=== PATIENT | male | born 1985 | race Caucasian/White ===

== ENCOUNTER 2018-01-02 09:36 | Emergency (ER) | payer SELFPAY ==
[~2018-01-02] VITALS: Ht 165.1 cm; Wt 69.6 kg
[2018-01-02 09:46] VITALS: TEMP 97.1
[2018-01-02 10:00] LABS: COLLECTION METHOD CLEAN CATCH
[2018-01-02 10:28] LABS: MUCOUS Present /lpf; PH 5 (5-8); SQUAMOUS EPITHELIAL 0-2 /hpf; URINE APPEARANCE Hazy; URINE BACTERIA None Seen /hpf; URINE BILIRUBIN Negative (NEGATIVE); URINE BLOOD Negative (NEGATIVE); URINE COLOR Yellow; URINE GLUCOSE Negative (NEGATIVE); URINE KETONE Negative (NEGATIVE); URINE LEUKOCYTE ESTERASE 2+ (NEGATIVE); URINE NITRATE Negative (NEGATIVE); URINE PROTEIN(semi-quant) Negative (NEGATIVE); URINE UROBILINOGEN Negative (NEGATIVE)
[2018-01-02 12:50] VITALS: BP 128/97; PULSE 55
== END 2018-01-02 12:51 | disposition home or self-care (01) ==
LOC: COL.ER 09:36
PROVIDERS: Nurse Practitioner
DX: A54.9 Gonococcal infection, unspecified (principal)
CPT/HCPCS: J0696